=== PATIENT | female | born 1950 | race Hispanic/Latino ===

== ENCOUNTER → 2017-08-29 | Outpatient (CLI) | payer OTHER ==
--- NOTE | 2017-08-29 14:09 | Diagnostic Imaging Report ---
TECHNIQUE: Computed tomography imaging of the LEFT foot was performed WITHOUT injected contrast. HISTORY: Pain COMPARISON: None available. DISCUSSION: No acute fracture. No lytic or blastic lesion. The talar dome is intact. Mild tibiotalar degenerative arthrosis. Additional multifocal degenerative arthrosis of the midfoot and first MTP joint. Dorsal and plantar calcaneal enthesophytes. Multiple ossific bodies at the medial forefoot, indeterminate. IMPRESSION: Mild ankle degenerative arthrosis. No osteochondral defect. Multiple ossified bodies at the plantar medial midfoot, indeterminate. Consider MRI of the midfoot. Signed by: Dr. Saqib Camara M.D. on 08/29/2017 2:05 PM
== END ==
LOC: CT 10:33
PROVIDERS: ATTEND Podiatrist Foot & Ankle Surgery
DX: M93.272 Osteochondritis dissecans, left ankle and joints of left foot (principal)